=== PATIENT | female | born 1965 | race Caucasian/White ===

== ENCOUNTER 2016-07-11 00:07 | Emergency (ER) | payer BC ==
[2016-07-11] MEDS ORDERED: Ketorolac INJ* 60 MG/2 ML VIAL IM ONE (00:38)
[2016-07-11] MEDS ORDERED: HYDROcodone/ACETAMIN 5-325 MG* 1 TAB PO ONE (00:38)
--- NOTE | 2016-07-11 01:03 | ED ---
Neck Pain - HPI Summary HPI Summary: Patient developed neck pain two weeks ago without incident. She treated this with warm heat and felt she was improving until three days ago when her pain returned with intensity. She has been unable to sleep for the past three days and yesterday she lifted a case of water that exacerbated her pain. She is a [facility] patient, so she went to their clinic where she was given muscle relaxers and NSAIDs. She has taken two of the muscle relaxers and the NSAID without relief. She feels a knot on her left trapezius and now finds her chest muscles are aching as well. She denies SOB, diaphoresis, ALEXANDRA, nausea or dizziness. Her pain is worse with deep breaths, coughing, and sneezing can make her cry. - History of Current Complaint Chief Complaint: EDNeckComplaint Stated Complaint: NECK PAIN Time Seen by Provider: 07/11/16 00:16 Hx Obtained From: Patient, Family/[employer] Instructor Onset/Duration Of Injury/Symptoms: Days Mechanism Of Injury: No Known Trauma Timing: Constant Onset/Duration: Gradual Onset, Started weeks ago - 2 Severity Initially: Moderate Severity Currently: Severe Pain Intensity: 10 Character: Sharp, Aching, Spasmotic Aggravating Factors: Movement, Other: - deep breaths, sneezing, coughing Alleviating Factors: Nothing Associated Signs & Symptoms: Positive: Swelling - left trapezius. Negative: Bruising, Nuchal Rigity, Weakness, Headache - Allergies/Home Medications Allergies/Adverse Reactions: Allergies Allergy/AdvReac Type Severity Reaction Status Date / Time Monosodium Glutamate Allergy Flushing Verified 07/11/16 00:16 Penicillins Allergy Shortness Verified 07/11/16 00:16 of Breath PMH/Surg Hx/FS Hx/Imm Hx Previously Healthy: Yes Endocrine/Hematology History: Denies: Hx Diabetes Cardiovascular History: Denies: Hx Hypertension, Hx Pacemaker/ICD Sensory History: Denies: Hx Hearing Aid Psychiatric History: Denies: Hx Panic Disorder - Surgical History Surgery Procedure, Year, and Place: CSP FUSION 1995. RT SHOULDER SLAP SURGERY - Immunization History Date of Tetanus Vaccine: UTD Date of Influenza Vaccine: 2015 Infectious Disease History: No Infectious Disease History: Denies: Traveled Outside the [place] in Last 30 Days - Family History Known Family History: Positive: Hypertension - Social History Occupation: Employed Full-time Lives: With Family Alcohol Use: Occasionally Substance Use Type: Reports: None Smoking Status (MU): Never Smoked Tobacco Review of Systems Negative: Fever, Chills Negative: Chest Pain Negative: Shortness Of Breath Positive: Myalgia Negative: Bruising Negative: Headache, Weakness All Other Systems Reviewed And Are Negative: Yes Physical Exam Triage Information Reviewed: Yes Vital Signs On Initial Exam: Initial Vitals Temp Pulse Resp BP Pulse Ox 99.0 F 87 14 113/61 96 07/11/16 00:09 07/11/16 00:07/11/16 00:07/11/16 00:07/11/16 00:09 Vital Signs Reviewed: Yes Appearance: Positive: Well-Appearing, Well-Nourished, Pain Distress Skin: Positive: Warm, Skin Color Reflects Adequate Perfusion, Dry, Soft Head/Face: Positive: Normal Head/Face Inspection Eyes: Positive: EOMI, RADHA, Conjunctiva Clear ENT: Positive: Hearing grossly normal Neck: Positive: Supple, No Lymphadenopathy, Tenderness @ - TTP left trapezius muscle with palpable knot at mid shoulder Respiratory/Lung Sounds: Positive: Clear to Auscultation, Breath Sounds Present Cardiovascular: Positive: RRR Abdomen Description: Positive: Nontender, Soft Bowel Sounds: Positive: Present Musculoskeletal: Positive: Limited @, Pain @ - TTP left trapezius muscle over left scapular spine to acromion; non-tender over deltoid muscle; TTP left pectoralis muscle; non-tender bicipital groove or bicep Neurological: Positive: Sensory/Motor Intact, Alert, Oriented to Person Place, Time, NV Bundle Intact Distally Psychiatric: Positive: Affect/Mood Appropriate AVPU Assessment: Alert - [place] Coma Scale Coma Scale Total: 15 Diagnostics - Vital Signs Vital Signs Temp Pulse Resp BP Pulse Ox 07/11/16 00:09 99.0 F 87 14 113/61 96 - Laboratory Lab Statement: Any lab studies that have been ordered have been reviewed, and results considered in the medical decision making process. - Radiology No standard instances Xray Interpretation: No Acute Changes Radiology Interpretation Completed By: Radiologist Neck Course/Dx - Diagnoses Differential Dx/HQI/PQRI: Positive: Adenitis, Cervical Fracture, Dislocation, Sprain, Strain, Torticollis, Trauma Provider Diagnoses: Trapezius muscle spasm Discharge - Discharge Plan Condition: Stable Disposition: HOME Prescriptions: oxyCODONE TAB* [Roxycodone TAB 5 mg*] 5 mg PO Q6H PRN #20 tab MDD 4 PRN Reason: Pain Patient Education Materials: Muscle Spasm (ED) Referrals: Wili August MD [Medical Doctor] - Additional Instructions: Please use the medication provided to manage your pain. You can perform activities as tolerated, but please limit lifting, pushing or pulling for the next 7-10 days to allow your muscle to heal. Follow-up with your primary care provider in 3-5 days for evaluation. Return to the emergency department if your symptoms worsen.
[2016-07-11] MEDS ORDERED: oxyCODONE TAB* 5 MG TAB PO ONE (01:49)
[2016-07-11 01:57] VITALS: BP 105/61
--- NOTE | 2016-07-11 07:35 | RAD ---
HISTORY: Left rib pain, shortness of breath COMPARISONS: None VIEWS: 2: Frontal dual-energy and lateral views of the chest. FINDINGS: CARDIOMEDIASTINAL SILHOUETTE: The cardiomediastinal silhouette is normal. MICHOACANO: The michoacano are normal. PLEURA: The costophrenic angles are sharp. No pleural abnormalities are noted. LUNG PARENCHYMA: There is minimal linear opacification of the left lung base ABDOMEN: The upper abdomen is clear. There is no subphrenic gas. BONES AND SOFT TISSUES: No bone or soft tissue abnormalities are noted. OTHER: None. IMPRESSION: MINIMAL LINEAR ATELECTASIS OF LEFT LUNG BASE
== END 2016-07-11 01:56 | disposition home or self-care (01) ==
LOC: ED 00:07
DX: M62.838 Other muscle spasm (principal); M54.2 Cervicalgia; Z88.0 Allergy status to penicillin
CPT/HCPCS: 71020; 96372; 99282; A9270-GY; J1885

== ENCOUNTER 2016-12-01 17:24 | Emergency (ER) | payer BC ==
[2016-12-01 17:37] VITALS: BP 140/74
[2016-12-01] MEDS ORDERED: Tetan/Diph/Pertus SYR(Tdap)* 0.5 ML SYR(BOOSTRIX) use SYR IM ONE (18:00)
--- NOTE | 2016-12-01 18:00 | UC ---
Skin Complaint HPI - HPI Summary HPI Summary: Laceration to right thumb on a vegetable slicer 1 hour prior to arrival - History of Current Complaint Chief Complaint: UCLaceration Time Seen by Provider: 12/01/16 17:55 Stated Complaint: THUMB LAC Hx Obtained From: Patient ?: No Onset/Duration: Sudden Onset, Lasting Hours - 1, Still Present Skin Exposure Onset/Duration: Hours Ago - 1 Timing: Constant Onset Severity: Mild Current Severity: Mild Pain Intensity: 3 Pain Scale Used: 0-10 Numeric Location: Discrete - tip of right thumb--clean flap laceration skin attached Character: Pain Aggravating: Nothing Alleviating: Other - direct pressure Associated Signs & Symptoms: Positive: Negative Related History: Trauma - Allergy/Home Medications Allergies/Adverse Reactions: Allergies Allergy/AdvReac Type Severity Reaction Status Date / Time Monosodium Glutamate Allergy Flushing Verified 07/11/16 00:16 Penicillins Allergy Shortness Verified 07/11/16 00:16 of Breath Home Medications: Home Medications NK [No Home Medications Reported] 12/01/16 [History Confirmed 12/01/16] Review of Systems Constitutional: Negative Skin: Negative Eyes: Negative ENT: Negative Respiratory: Negative Cardiovascular: Negative Gastrointestinal: Negative Genitourinary: Negative Motor: Negative Neurovascular: Negative Musculoskeletal: Arthralgia - right finger tip pain Neurological: Negative Psychological: Negative All Other Systems Reviewed And Are Negative: Yes PMH/Surg Hx/FS Hx/Imm Hx Previously Healthy: Yes - Surgical History Surgical History: Yes Surgery Procedure, Year, and Place: CSP FUSION 1995. RT SHOULDER SLAP SURGERY - Family History Known Family History: Positive: Hypertension - Social History Occupation: Employed Full-time Lives: With Family Alcohol Use: Occasionally Substance Use Type: None Smoking Status (MU): Never Smoked Tobacco - Immunization History Hx Tetanus, Diphtheria Vaccination: Yes - unsure of last date Vaccination Up to Date: No Physical Exam Triage Information Reviewed: Yes Appearance: Well-Appearing, No Pain Distress, Well-Nourished Vital Signs: Initial Vital Signs Temp 98 F 12/01/16 17:34 Pulse 77 12/01/16 17:34 Resp 16 12/01/16 17:34 BP 140/74 12/01/16 17:34 Pulse Ox 100 12/01/16 17:34 Vital Signs Reviewed: Yes Eye Exam: Normal Eyes: Positive: Conjunctiva Clear ENT Exam: Normal ENT: Positive: Normal ENT inspection, Hearing grossly normal. Negative: Nasal congestion, Nasal drainage, Trismus, Muffled/hoarse voice Dental Exam: Normal Neck exam: Normal Neck: Positive: Supple, Nontender, No Lymphadenopathy Respiratory Exam: Normal Respiratory: Positive: Chest non-tender, Lungs clear, Normal breath sounds, No respiratory distress, No accessory muscle use Cardiovascular Exam: Normal Cardiovascular: Positive: RRR, No Murmur, Pulses Normal, Brisk Capillary Refill Musculoskeletal Exam: Normal Musculoskeletal: Positive: Strength Intact, ROM Intact, No Edema, Other: - flap laceration right thunb tip Neurological Exam: Normal Neurological: Positive: Alert, Muscle Tone Normal Psychological Exam: Normal Skin Exam: Other Skin: Positive: Other - flap laceration tip of right thumb Laceration Repair - Laceration Repair 1 Description: Irregular Laceration Size After Repair: Length (cm) - 2, Width (mm) - 1, Depth (mm) - 2 Modified For Repair: No Cleansing Completed Via Routine Prep: Yes Irrigation With Pressure Irrigation Device: Yes Closure Material: Skin Adhesive Re-Evaluation - Re-Evaluation First Eval Change: Improved - well approximated, tolerated glue well Course/Dx - Course Course Of Treatment: skin glue, dressing, splint for protection, follow with pcp - Differential Diagnoses - Skin Complaint Differential Diagnoses: Other - laceration repair - Diagnoses Provider Diagnoses: 2 cm laceration repair, tetnus up date, hypertension without dx Discharge - Discharge Plan Condition: Stable Disposition: HOME Patient Education Materials: Skin Adhesive Care (ED), DASH Eating Plan (ED), Hypertension (ED) Referrals: [facility] [place] PHYSICIAN REFERRAL [Outside] - 1 Week
== END 2016-12-01 19:14 | disposition home or self-care (01) ==
LOC: UCEAST 17:24
DX: S61.011A Laceration without foreign body of right thumb without damage to nail, initial encounter (principal); W26.8XXA Contact with other sharp object(s), not elsewhere classified, initial encounter; Z88.0 Allergy status to penicillin; R03.0 Elevated blood-pressure reading, without diagnosis of hypertension
CPT/HCPCS: 12001; 90471; 90715; 99212; G0463

== ENCOUNTER 2017-10-10 12:28 | Emergency (ER) | payer BC ==
[2017-10-10 12:46] VITALS: BP 130/81
--- NOTE | 2017-10-10 13:31 | UC ---
Dental HPI - HPI Summary HPI Summary: c/o pain on right jaw where she needs root canal work, she has appt with dental clinic in 3 days but yesterday night pain began and she has not sleep well. Denies fever. - History of Current Complaint Chief Complaint: UCDentalProblem Stated Complaint: DENTAL Time Seen by Provider: 10/10/17 12:42 Hx Obtained From: Patient ?: No Onset/Duration: Sudden Onset, Lasting Days Pain Intensity: 0 Pain Scale Used: 0-10 Numeric - Allergies/Home Medications Allergies/Adverse Reactions: Allergies Allergy/AdvReac Type Severity Reaction Status Date / Time MS Monosodium Glutamate Allergy Flushing Verified 07/11/16 00:16 [Monosodium Glutamate] MS Penicillins [Penicillins] Allergy Shortness Verified 07/11/16 00:16 of Breath PMH/Surg Hx/FS Hx/Imm Hx Previously Healthy: Yes - Surgical History Surgical History: Yes Surgery Procedure, Year, and Place: CSP FUSION 1995. RT SHOULDER SLAP SURGERY - Family History Known Family History: Positive: Hypertension - Social History Alcohol Use: Occasionally Substance Use Type: None Smoking Status (MU): Never Smoked Tobacco - Immunization History Hx Tetanus, Diphtheria Vaccination: Yes - unsure of last date Vaccination Up to Date: No Review of Systems Constitutional: Negative ENT: Dental Pain All Other Systems Reviewed And Are Negative: Yes Physical Exam Triage Information Reviewed: Yes Appearance: Well-Appearing, No Pain Distress, Well-Nourished Vital Signs: Initial Vital Signs Temp 98.4 F 10/10/17 12:35 Pulse 72 10/10/17 12:35 Resp 16 10/10/17 12:35 BP 130/81 10/10/17 12:35 Pulse Ox 98 10/10/17 12:35 Vital Signs Reviewed: Yes Eyes: Positive: Conjunctiva Clear ENT: Positive: Pharynx normal, TMs normal, Uvula midline Dental: Positive: Percussion Tenderness @ - tooth #30 Neck: Positive: Supple, Nontender, No Lymphadenopathy Respiratory: Positive: Chest non-tender, Lungs clear Cardiovascular: Positive: RRR, No Murmur Dental Complaint Course/Dx - Course Course Of Treatment: dental sepsis, start clindamycin tid for 7 days, oral antiseptic tid, probiotics, f/u with dental, referral PCP - Differential Dx/Diagnosis Provider Diagnoses: dental sepsis Discharge - Sign-Out/Discharge Documenting (check all that apply): Discharge - Discharge Plan Condition: Stable Disposition: HOME Prescriptions: Chlorhexidine MOUTHWASH 0.12%* [Peridex Mouth Wash 0.12%*] 15 ml .SEE ORDER TID 7 Days #1 oral.soln Clindamycin HCl 300 mg PO TID 7 Days #21 capsule Patient Education Materials: Clindamycin (By mouth), Periodontal Disease (DC) Referrals: [facility] PHYSICIAN REFERRAL [Outside] No Primary Care Phys,NOPCP [Primary Care Provider] - Additional Instructions: referral given for PCP, to follow up in one week - Billing Disposition and Condition Condition: STABLE Disposition: HOME
== END 2017-10-10 13:05 | disposition home or self-care (01) ==
LOC: UCEAST 12:28
DX: K04.7 Periapical abscess without sinus (principal); Z88.0 Allergy status to penicillin
CPT/HCPCS: 99212; G0463

== ENCOUNTER 2017-12-14 17:08 | Emergency (ER) | payer BC ==
--- NOTE | 2017-12-14 18:09 | RAD ---
INDICATION: Right shoulder injury. TECHNIQUE: 4 views of the right shoulder were obtained. FINDINGS: The bones are normal alignment. There is a faint radiolucent line seen in the region of the greater trochanter possibly indicating a nondisplaced fracture. No other fractures are seen. Joint spaces appear maintained. IMPRESSION: POSSIBLE NONDISPLACED FRACTURE OF THE GREATER TROCHANTER.
--- NOTE | 2017-12-14 18:26 | ED ---
Upper Extremity Pain - HPI Summary HPI Summary: 52 year old presents with right shoulder pain today. She was walking the dog when the dog suddenly pulled on arm quickly. Her hand was caught in the lead and it pulled her shoulder. She felt a pop in her shoulder. She has a history of a labial tear of this shoulder. She denies any numbness or tingling. She is unable to move her arm without extreme pain. Unsure if any weakness as cannot move her arm. No neck pain. No elbow pain. No other injury. He is right-handed. Works as a professor. - History of Current Complaint Chief Complaint: EDExtremityUpper Stated Complaint: RT SHOULDER INJURY Time Seen by Provider: 12/14/17 17:47 - Allergies/Home Medications Allergies/Adverse Reactions: Allergies Allergy/AdvReac Type Severity Reaction Status Date / Time monosodium glutamate Allergy Flushing Verified 12/14/17 18:10 Penicillins Allergy Shortness Verified 12/14/17 18:10 of Breath PMH/Surg Hx/FS Hx/Imm Hx Endocrine/Hematology History: Denies: Hx Diabetes, Hx Thyroid Disease Cardiovascular History: Denies: Hx Hypertension, Hx Pacemaker/ICD Comment Only: Other Cardiovascular Problems/Disorders - HEART MURMUR Respiratory History: Denies: Hx Asthma, Hx Chronic Obstructive Pulmonary Disease (COPD) GI History: Denies: Hx Ulcer Sensory History: Denies: Hx Hearing Aid Psychiatric History: Denies: Hx Panic Disorder - Surgical History Surgery Procedure, Year, and Place: CSP FUSION 1995. RT SHOULDER SLAP SURGERY - Immunization History Date of Tetanus Vaccine: UTD Date of Influenza Vaccine: 2015 Immunizations Up to Date: Yes Infectious Disease History: No Infectious Disease History: Denies: Hx Clostridium Difficile, Hx Hepatitis, Hx Human Immunodeficiency Virus (HIV), Hx of Known/Suspected MRSA, Hx Shingles, Hx Tuberculosis, Hx Known/ Suspected VRE, Hx Known/Suspected VRSA, History Other Infectious Disease, Traveled Outside the [place] in Last 30 Days - Family History Known Family History: Positive: Hypertension - Social History Alcohol Use: Occasionally Substance Use Type: Reports: None Smoking Status (MU): Never Smoked Tobacco Review of Systems Negative: Fever Negative: Chest Pain Negative: Shortness Of Breath Positive: Myalgia - right shoulder pain All Other Systems Reviewed And Are Negative: Yes Physical Exam Triage Information Reviewed: Yes Vital Signs On Initial Exam: Initial Vitals Temp Pulse Resp BP Pulse Ox 97.8 F 76 16 127/55 97 12/14/17 17:12 12/14/17 17:12 12/14/17 17:12 12/14/17 17:12 12/14/17 17:12 Vital Signs Reviewed: Yes Appearance: Positive: Well-Appearing Skin: Positive: Warm, Dry Head/Face: Positive: Normal Head/Face Inspection Eyes: Positive: Normal, Conjunctiva Clear ENT: Positive: Pharynx normal Respiratory/Lung Sounds: Positive: Clear to Auscultation, Breath Sounds Present Cardiovascular: Positive: Normal, RRR Musculoskeletal: Positive: Limited @ - right shoulder, Other - tenderness over anterior right shoulder, good pulses, good concrete batch plant operator strength, sensation grossly intact Neurological: Positive: Normal Psychiatric: Positive: Normal Diagnostics - Vital Signs Vital Signs Temp Pulse Resp BP Pulse Ox 12/14/17 17:12 97.8 F 76 16 127/55 97 - Laboratory Lab Statement: Any lab studies that have been ordered have been reviewed, and results considered in the medical decision making process. - Radiology shoulder Xray Interpretation: Positive (See Comments) - IMPRESSION: POSSIBLE NONDISPLACED FRACTURE OF THE GREATER TROCHANTER. Radiology Interpretation Completed By: Radiologist Course/Dx - Course Course Of Treatment: 52 year old presents with right shoulder pain today. She was walking the dog when the dog suddenly pulled on arm quickly. Her hand was caught in the lead and it pulled her shoulder. She felt a pop in her shoulder. She has a history of a labial tear of this shoulder. She denies any numbness or tingling. She is unable to move her arm without extreme pain. Unsure if any weakness as cannot move her arm. No neck pain. No elbow pain. No other injury. He is right-handed. Works as a professor. On exam has tenderness over right shoulder. Limited range of motion. Neurovascular intact. X-ray shows possible trochanteric fracture. Patient has pain in the area so we'll treat as a fracture. gave sling and pain medication. We'll have follow-up with ortho. Patient understands agrees with plan. - Diagnoses Differential Diagnosis/HQI/PQRI: Positive: Fracture (Closed), Strain, Sprain Provider Diagnoses: Closed fracture of trochlea of right humerus Discharge - Sign-Out/Discharge Documenting (check all that apply): Discharge/Admit/Transfer - Discharge Plan Condition: Good Disposition: HOME Prescriptions: oxyCODONE/Acetamin 5/325 MG* [Percocet 5/325 TAB*] 1 tab PO Q6H PRN #16 tab MDD 4 PRN Reason: Pain Patient Education Materials: Arm Fracture in Adults (ED) Referrals: No Primary Care Phys,NOPCP [Primary Care Provider] - Harsha Cruz MD [Medical Doctor] - Additional Instructions: Keep elbow in sling Follow up with ortho Use ibuprofen for pain every 6 hours and use narcotic for breakthrough pain every 6 hours Ice Return to ED if develop any new or worsening symptoms - Billing Disposition and Condition Condition: GOOD Disposition: Home
[2017-12-14 18:53] VITALS: BP 119/61
== END 2017-12-14 18:52 | disposition home or self-care (01) ==
LOC: ED 17:08
DX: S42.461A Displaced fracture of medial condyle of right humerus, initial encounter for closed fracture (principal); X50.0XXA Overexertion from strenuous movement or load, initial encounter; Y93.K1 Activity, walking an animal; Y92.9 Unspecified place or not applicable; Z88.0 Allergy status to penicillin
CPT/HCPCS: 99282

== ENCOUNTER 2021-11-19 13:47 | Inpatient (IN) ==
[2021-11-20 20:10] LABS: Urine Appearance Turbid; Urine Bilirubin Negative (Negative); Urine Blood 1+ (Negative); Urine Color Yellow; Urine Glucose Negative (Negative); Urine Ketones Negative (Negative); Urine Nitrite Positive (Negative); Urine Protein 1+(30 mg/dL) (Negative); Urine Specific Gravity 1.018 (1.002-1.030); Urine Urobilinogen Negative (Negative)
[2021-11-20 20:18] LABS: Urine Bacteria Absent (Absent); Urine Red Blood Cell 1+(3-5/hpf) (Absent); Urine Squamous Epithelial Cell Present (Absent); Urine White Blood Cell 3+(>20/hpf) (Absent)
[2021-11-20] MEDS: Enoxaparin 30 MG/0.3 ML SYR SUBCUT SCH (20:47)
[2021-11-20] MEDS ORDERED: oxyCODONE SR 20 mg TAB PO ONE (22:23)
[2021-11-21 06:41] LABS: Hematocrit 25 % (35-47); Hemoglobin 8.3 g/dL (12.0-16.0); Mean Corpuscular HGB Conc 33 g/dL (31-36); Mean Corpuscular Hemoglobin 32 pg (27-31); Mean Corpuscular Volume 98 fL (80-97); Mean Platelet Volume 8.3 fL (7.4-10.4); Platelet Count 590 10^3/uL (150-450); Red Blood Count 2.59 10^6 /uL (3.70-4.87); Red Cell Distribution Width 15 % (10-15); White Blood Count 9.4 10^3/uL (3.5-10.8)
[2021-11-21 07:07] LABS: Albumin 3.3 g/dL (3.2-5.2); Albumin/Globulin Ratio 1.3 (1-3); Calcium 8.7 mg/dL (8.6-10.3); Globulin 2.6 g/dL (2-4); Potassium 4.7 mmol/L (3.5-5.0); Total Bilirubin 0.7 mg/dL (0.2-1.0); Total Protein 5.9 g/dL (6.4-8.9); eGFR CKD-EPI 84.1 (>60)
[2021-11-21 07:47] LABS: Anisocytosis 1+; Macrocytosis 1+; Polychromasia 1+
[2021-11-21 07:48] LABS: ABS Basophils 0.1 10^3/ul (0-0.2); ABS Eosinophils 0.4 10^3/ul (0-0.6); ABS Lymphocytes 2.5 10^3/ul (1.0-4.8); ABS Monocytes 0.5 10^3/ul (0-0.8); Eosinophil % 3.8 %; Lymphocyte % 26.1 %; Nucleated Red Blood Cells % 0.2
[2021-11-21] MEDS: Enoxaparin 30 MG/0.3 ML SYR SUBCUT SCH ×2 (08:15→20:55)
[2021-11-22] MEDS: Enoxaparin 30 MG/0.3 ML SYR SUBCUT SCH ×2 (08:02→19:46)
[2021-11-22] MEDS: Sulfamethox/Trimethoprim DS TAB 800/160 mg PO SCH ×2 (11:16→19:46)
[2021-11-22] MEDS: Senna TAB 8.6 mg TAB PO PRN (19:44)
[2021-11-23] MEDS: Sulfamethox/Trimethoprim DS TAB 800/160 mg PO SCH ×2 (09:15→20:01)
[2021-11-23] MEDS: Enoxaparin 30 MG/0.3 ML SYR SUBCUT SCH ×2 (09:16→20:03)
[2021-11-23] MEDS: Senna TAB 8.6 mg TAB PO PRN (20:02)
[2021-11-24] MEDS: Sulfamethox/Trimethoprim DS TAB 800/160 mg PO SCH ×2 (08:20→20:46)
[2021-11-24] MEDS: Enoxaparin 30 MG/0.3 ML SYR SUBCUT SCH ×2 (08:23→20:48)
[2021-11-24] MEDS: Magnesium Hydroxide LIQ 30 ML UDC PO PRN (20:23)
[2021-11-24] MEDS: Senna TAB 8.6 mg TAB PO PRN (20:46)
[2021-11-24] MEDS: oxyCODONE SR 20 mg TAB PO SCH (20:46)
[2021-11-24] MEDS: Senna TAB 8.6 mg TAB PO SCH (20:54)
[2021-11-25] MEDS: Enoxaparin 30 MG/0.3 ML SYR SUBCUT SCH ×2 (09:51→21:07)
[2021-11-25] MEDS: Sulfamethox/Trimethoprim DS TAB 800/160 mg PO SCH ×2 (09:52→21:07)
[2021-11-25] MEDS: Senna TAB 8.6 mg TAB PO SCH (20:55)
[2021-11-25] MEDS: oxyCODONE SR 20 mg TAB PO SCH (20:55)
[2021-11-25] MEDS: Magnesium Hydroxide LIQ 30 ML UDC PO PRN (20:56)
[2021-11-26] MEDS: Sulfamethox/Trimethoprim DS TAB 800/160 mg PO SCH ×2 (09:05→21:28)
[2021-11-26] MEDS: Enoxaparin 30 MG/0.3 ML SYR SUBCUT SCH ×2 (09:06→21:29)
[2021-11-26] MEDS: Magnesium Hydroxide LIQ 30 ML UDC PO PRN (16:12)
[2021-11-26] MEDS: oxyCODONE SR 20 mg TAB PO SCH (21:28)
[2021-11-26] MEDS: Senna TAB 8.6 mg TAB PO SCH (21:28)
[2021-11-27] MEDS: Sulfamethox/Trimethoprim DS TAB 800/160 mg PO SCH ×2 (09:13→21:24)
[2021-11-27] MEDS: Enoxaparin 30 MG/0.3 ML SYR SUBCUT SCH ×2 (09:13→21:25)
[2021-11-27] MEDS: Magnesium Hydroxide LIQ 30 ML UDC PO PRN (15:48)
[2021-11-27] MEDS: Senna TAB 8.6 mg TAB PO SCH (21:24)
[2021-11-27] MEDS: oxyCODONE SR 20 mg TAB PO SCH (21:24)
[2021-11-28 06:50] LABS: ABS Eosinophils 0.4 10^3/ul (0-0.6); ABS Lymphocytes 0.8 10^3/ul (1.0-4.8); ABS Monocytes 0.4 10^3/ul (0-0.8); ABS Neutrophils 2.4 10^3/ul (1.5-7.7); Eosinophil % 9.3 %; Hematocrit 30 % (35-47); Hemoglobin 9.8 g/dL (12.0-16.0); Mean Corpuscular HGB Conc 33 g/dL (31-36); Mean Corpuscular Hemoglobin 33 pg (27-31); Mean Corpuscular Volume 99 fL (80-97); Mean Platelet Volume 8.7 fL (7.4-10.4); Nucleated Red Blood Cells % 0.1; Platelet Count 549 10^3/uL (150-450); Red Cell Distribution Width 18 % (10-15); White Blood Count 3.9 10^3/uL (3.5-10.8)
[2021-11-28 07:13] LABS: Albumin 3.6 g/dL (3.2-5.2); Albumin/Globulin Ratio 1.2 (1-3); Calcium 8.8 mg/dL (8.6-10.3); Globulin 2.9 g/dL (2-4); Potassium 4.8 mmol/L (3.5-5.0); Total Bilirubin 0.5 mg/dL (0.2-1.0); Total Protein 6.5 g/dL (6.4-8.9); eGFR CKD-EPI 72.2 (>60)
[2021-11-28] MEDS: Magnesium Hydroxide LIQ 30 ML UDC PO PRN (08:36)
[2021-11-28] MEDS: Sulfamethox/Trimethoprim DS TAB 800/160 mg PO SCH ×2 (09:34→20:48)
[2021-11-28] MEDS: Enoxaparin 30 MG/0.3 ML SYR SUBCUT SCH ×2 (09:37→20:54)
[2021-11-28] MEDS ORDERED: Lactulose 30 ml UDC PO ONE (12:49)
[2021-11-28] MEDS: Senna TAB 8.6 mg TAB PO SCH (20:50)
[2021-11-28] MEDS: oxyCODONE SR 20 mg TAB PO SCH (20:51)
[2021-11-29] MEDS: Enoxaparin 30 MG/0.3 ML SYR SUBCUT SCH ×2 (09:43→21:34)
[2021-11-29] MEDS: Sulfamethox/Trimethoprim DS TAB 800/160 mg PO SCH (09:44)
[2021-11-29] MEDS ORDERED: Sodium Phosphate ADULT ENEMA 133 ML BTL PR PRN (15:59)
[2021-11-29] MEDS ORDERED: Lactulose 30 ml UDC PO ONE (15:59)
[2021-11-29] MEDS: Magnesium Hydroxide LIQ 30 ML UDC PO PRN (19:49)
[2021-11-29] MEDS ORDERED: Ondansetron ODT 4 mg TAB 4 MG TAB PO PRN (21:54)
[2021-11-29] MEDS: oxyCODONE SR 20 mg TAB PO SCH (22:37)
[2021-11-29] MEDS: Senna TAB 8.6 mg TAB PO SCH (22:37)
[2021-11-30] MEDS: Enoxaparin 30 MG/0.3 ML SYR SUBCUT SCH ×2 (08:59→21:02)
[2021-11-30] MEDS: oxyCODONE SR 20 mg TAB PO SCH (21:03)
[2021-11-30] MEDS: Senna TAB 8.6 mg TAB PO SCH (21:04)
[2021-12-01] MEDS: Enoxaparin 30 MG/0.3 ML SYR SUBCUT SCH ×2 (10:15→21:14)
[2021-12-01] MEDS: Senna TAB 8.6 mg TAB PO SCH (21:12)
[2021-12-01] MEDS: oxyCODONE SR 15 mg TAB PO SCH (21:15)
[2021-12-02] MEDS: Enoxaparin 30 MG/0.3 ML SYR SUBCUT SCH ×2 (11:05→21:24)
[2021-12-02] MEDS: Senna TAB 8.6 mg TAB PO SCH (21:11)
[2021-12-02] MEDS: oxyCODONE SR 15 mg TAB PO SCH (21:11)
[2021-12-03] MEDS: Enoxaparin 30 MG/0.3 ML SYR SUBCUT SCH ×2 (08:57→21:06)
[2021-12-03] MEDS: oxyCODONE SR 15 mg TAB PO SCH (21:07)
[2021-12-03] MEDS: Senna TAB 8.6 mg TAB PO SCH (21:10)
[2021-12-04] MEDS: Enoxaparin 30 MG/0.3 ML SYR SUBCUT SCH ×2 (07:44→21:22)
[2021-12-04] MEDS ORDERED: oxyCODONE SR 10 mg TAB PO SCH (21:00)
[2021-12-04] MEDS: Senna TAB 8.6 mg TAB PO SCH (21:22)
[2021-12-05 06:03] VITALS: BP 110/70
[2021-12-05 06:52] LABS: ABS Basophils 0.1 10^3/ul (0-0.2); ABS Eosinophils 0.3 10^3/ul (0-0.6); ABS Lymphocytes 1.7 10^3/ul (1.0-4.8); ABS Monocytes 0.3 10^3/ul (0-0.8); ABS Neutrophils 1.1 10^3/ul (1.5-7.7); Eosinophil % 7.6 %; Hematocrit 33 % (35-47); Lymphocyte % 49.1 %; Mean Corpuscular HGB Conc 34 g/dL (31-36); Mean Corpuscular Hemoglobin 33 pg (27-31); Mean Corpuscular Volume 97 fL (80-97); Mean Platelet Volume 8.4 fL (7.4-10.4); Platelet Count 336 10^3/uL (150-450); Red Blood Count 3.37 10^6 /uL (3.70-4.87); Red Cell Distribution Width 16 % (10-15); White Blood Count 3.4 10^3/uL (3.5-10.8)
[2021-12-05 07:04] LABS: Albumin 3.8 g/dL (3.2-5.2); Albumin/Globulin Ratio 1.2 (1-3); Calcium 9.4 mg/dL (8.6-10.3); Globulin 3.1 g/dL (2-4); Potassium 4.7 mmol/L (3.5-5.0); Total Bilirubin 0.5 mg/dL (0.2-1.0); Total Protein 6.9 g/dL (6.4-8.9); eGFR CKD-EPI 79.4 (>60)
[2021-12-05] MEDS: Enoxaparin 30 MG/0.3 ML SYR SUBCUT SCH (09:17)
== END 2021-12-05 11:27 | disposition home health service (06) | DRG 860 ==
LOC: PMRU 11-20 14:41
PROVIDERS: ADMIT Physical Medicine & Rehabilitation; ATTEND Physical Medicine & Rehabilitation